=== PATIENT | female | born 1955 | race Caucasian/White ===

== ENCOUNTER → 2017-05-21 | Day surgery (SDC) | payer OTHER ==
[~2017-05-21] VITALS: Ht 160 cm; Wt 90.7 kg
[~2017-05-21] MED LIST: 0.9% Sodium Chloride 1,000 ML IV SCH; ASPI-973 PO; CYAN1TAB19 PO; FLUO20CA25 PO; KTC2C15 TP; LAMO150T PO; Sodium Chloride LOK Flush 10 mL Syringe IV PRN; fentaNYL-PF 50 mCg/mL 2 mL Inj IVPUSH PRN
[2017-05-21 09:49] VITALS: BP 106/63; PULSE 75; RESP 16; O2SAT 98
[2017-05-21 10:33] VITALS: BP 99/57; PULSE 62; RESP 12; O2SAT 96
[2017-05-21 10:42] VITALS: BP 102/56; PULSE 64; RESP 14; O2SAT 96
--- NOTE | 2017-05-21 10:44 | ENDO ---
[address] [address] ENDOSCOPY PROCEDURE PATIENT: GERMÁN FONTENOT : 1955 MR#: [id number] ADMIT: 05/21/2017 JOB ID: [id number] PROCEDURE: Colonoscopy. PREOPERATIVE DIAGNOSIS(ES): Personal history of colon polyps. POSTOPERATIVE DIAGNOSIS(ES): Small internal hemorrhoids. ANESTHESIA: Fentanyl 100 mcg versed 5mg IV administered. COMPLICATIONS: None. BLOOD LOSS: Minimal. DESCRIPTION OF PROCEDURE: After risks and benefits were explained to the patient, informed was obtained. After anesthesia administered, a colonoscope was inserted from the rectum to the cecum. Mucosa carefully examined. Prep of the patient was excellent. After the procedure was done, the scope withdrawn and procedure terminated. FINDINGS: Upon inspection of the anus, no masses, hemorrhoids, ulcers, fissures that were seen. Throughout the entire examination, no polyps, masses, or lesions. Retroflexion showed small internal hemorrhoids. IMPRESSION: Small internal hemorrhoids. RECOMMENDATIONS: Stool softeners. Repeat colonoscopy in five years for history of colon polyps. MARIA ESTHERD
[2017-05-21 10:53] VITALS: BP 100/60; PULSE 66; RESP 14; O2SAT 96
== END | disposition home or self-care (01) ==
LOC: END 00:44
PROVIDERS: ATTEND Internal Medicine Gastroenterology
DX: Z12.11 Encounter for screening for malignant neoplasm of colon (principal); Z86.010 Personal history of colon polyps; K64.8 Other hemorrhoids; G47.33 Obstructive sleep apnea (adult) (pediatric); R41.3 Other amnesia; K21.9 Gastro-esophageal reflux disease without esophagitis; F41.9 Anxiety disorder, unspecified; R56.9 Unspecified convulsions; Z79.82 Long term (current) use of aspirin
CPT/HCPCS: 99152; G0105; J2250; J3010; J7030